=== PATIENT | female | born 1930 | race Caucasian/White ===

== ENCOUNTER 2017-01-18 07:32 | Outpatient (CLI) | payer MEDICARE, OTHER ==
[2017-01-18 19:13] LABS: ALBUMIN/GLOBULIN RATIO 1.5 (1.0-2.2); BILIRUBIN,TOTAL 0.5 mg/dL (0.2-1.0); BUN - BLOOD UREA NITROGEN 21 mg/dL (6-20); CALCIUM 9.7 mg/dL (8.5-10.3); CARBON DIOXIDE - CO2 27 mmol/L (21-32); CHLORIDE 106 mmol/L (101-111); CREATININE 0.9 mg/dL (0.4-1.0); GFR - MDRD 60 (>89); GLUCOSE 106 mg/dL (70-100); POTASSIUM 4.2 mmol/L (3.5-5.0); SODIUM 140 mmol/L (135-145); TOTAL PROTEIN 6.6 g/dL (6.7-8.2)
[2017-01-18 19:40] LABS: BASOPHILS % (AUTO) 0.6 %; EOSINOPHILS # (AUTO) 0.1 10^3/uL (0.0-0.7); EOSINOPHILS % (AUTO) 1.7 %; HCT - HEMATOCRIT 39.7 % (37.0-47.0); LYMPHOCYTES # (AUTO) 0.9 10^3/uL (1.5-3.5); MEAN CORPUSCULAR HEMOGLOBIN 30.5 pg (27.0-31.0); MEAN CORPUSCULAR HGB CONC 32.7 g/dL (32.0-36.0); MEAN CORPUSCULAR VOLUME 93.2 fL (81.0-99.0); MONOCYTES # (AUTO) 0.6 10^3/uL (0.0-1.0); MONOCYTES % (AUTO) 14.3 %; NEUTROPHILS # (AUTO) 2.5 10^3/uL (1.5-6.6); NEUTROPHILS % (AUTO) 62.4 %; NUCLEATED RED BLOOD CELLS AUTO 0.1 /100WBC; RED BLOOD COUNT 4.26 10^6/uL (4.20-5.40); RED CELL DISTRIBUTION WIDTH 14.3 % (12.0-15.0); UNCORRECTED WHITE BLOOD COUNT 4.1 x10^3/uL; WHITE BLOOD COUNT 4.1 x10^3/uL (4.8-10.8)
[2017-01-18 19:43] LABS: THYROID STIMULATING HORMONE 6.77 uIU/mL (0.34-5.60)
== END 2017-01-18 07:33 | disposition home or self-care (01) ==
LOC: LAB.WCP 07:32
PROVIDERS: ATTEND Family Medicine
DX: E03.9 Hypothyroidism, unspecified (principal); F03.91 Unspecified dementia, unspecified severity, with behavioral disturbance
CPT/HCPCS: 36415; 80053; 84439; 84443; 85025

== ENCOUNTER 2017-07-24 00:07 | Outpatient (CLI) | payer MEDICARE, OTHER | END 2017-07-24 00:08 | disposition critical access hospital (66) | LOC: EMS 00:07 | PROVIDERS: ATTEND Surgery | DX: R06.00 Dyspnea, unspecified (principal) | CPT/HCPCS: A0425; A0427 ==

== ENCOUNTER 2017-07-24 00:22 | Emergency (ER) | payer MEDICARE, OTHER ==
[2017-07-24] MEDS ORDERED: LORazepam 2 MG/ML SYRINGE IVP STA ×2 (00:34→01:26)
[2017-07-24] MEDS ORDERED: LORazepam 2 MG/ML SYRINGE ONE ×3 (00:37→01:33)
[2017-07-24] MEDS ORDERED: HYDROmorphone 1 MG/ML SYRINGE IVP STA (00:44)
[2017-07-24] MEDS ORDERED: ONDANSETRON 4 MG/2 ML VIAL IVP STA (00:44)
[2017-07-24 00:50] VITALS: BP 118/83
[2017-07-24 00:53] LABS: BASOPHILS % (AUTO) 0.2 %; HGB - HEMOGLOBIN 14.2 g/dL (12.0-16.0); LYMPHOCYTES % (AUTO) 7.2 %; MEAN CORPUSCULAR HEMOGLOBIN 30.2 pg (27.0-31.0); MEAN CORPUSCULAR VOLUME 91.6 fL (81.0-99.0); MEAN PLATELET VOLUME 8.2 fL (7.9-10.8); MONOCYTES % (AUTO) 7.1 %; NEUTROPHILS % (AUTO) 85.5 %; RED BLOOD COUNT 4.69 10^6/uL (4.20-5.40); RED CELL DISTRIBUTION WIDTH 14.9 % (12.0-15.0); UNCORRECTED WHITE BLOOD COUNT 25.5 x10^3/uL; WHITE BLOOD COUNT 25.5 x10^3/uL (4.8-10.8)
[2017-07-24] MEDS ORDERED: ONDANSETRON 4 MG/2 ML VIAL ONE (00:53)
[2017-07-24] MEDS ORDERED: HYDROmorphone 1 MG/ML SYRINGE ONE (00:53)
[2017-07-24 00:59] LABS: ALBUMIN/GLOBULIN RATIO 0.8 (1.0-2.2); BILIRUBIN,TOTAL 0.7 mg/dL (0.2-1.0); CALCIUM 10.7 mg/dL (8.5-10.3); CREATININE 1.6 mg/dL (0.4-1.0); POTASSIUM 3.8 mmol/L (3.5-5.0); TOTAL PROTEIN 8.2 g/dL (6.7-8.2)
--- NOTE | 2017-07-24 01:11 | XRAY Preliminary Report ---
Exam: XR CHEST 1 VIEW IMPRESSION: 1. No focal consolidation seen. 2. Bronchial wall thickening, possibly due to bronchitis or reactive airways disease. [facility] SITE ID: [id number]
--- NOTE | 2017-07-24 01:14 | XRAY Report ---
EXAM: CHEST RADIOGRAPHY EXAM DATE: 07/24/2017 12:58 AM. CLINICAL HISTORY: Dyspnea. COMPARISON: 09/22/2013. TECHNIQUE: 1 view. FINDINGS: Lungs/Pleura: No alveolar consolidation or pleural effusion seen. No pneumothorax. Bronchial wall thi ckening. Mediastinum: Rotated. Heart size is probably normal. Tortuous atherosclerotic aorta. Other: Old ununited left clavicle fracture. IMPRESSION: 1. No focal consolidation seen. 2. Bronchial wall thickening, possibly due to bronchitis or reactive airways disease. [facility] Referring Provider Line: [phone] SITE ID: [id number]
[2017-07-24 01:21] LABS: BAND NEUTROPHILS % (MANUAL) 2 %; LYMPHOCYTES % (MANUAL) 13 %; NEUTROPHILS % (MANUAL) 78 %; TOTAL CELLS COUNTED 100
[2017-07-24 01:22] LABS: NP AUTO DIFFERENTIAL? YES; NP MAN DIFFERENTIAL? NO; PLATELET ESTIMATE, MANUAL INCREASED (>450,000) (NORMAL); PLATELET MORPHOLOGY NORMAL APPEARANCE (NORMAL)
--- NOTE | 2017-07-24 02:48 | ED Physician Documentation ---
PD HPI DYSPNEA - Stated complaint Stated Complaint: SOB/WHEEZING - Chief complaint Chief Complaint: Resp - History obtained from History obtained from: Family, EMS - History of Present Illness Timing - onset: How many days ago (4) Timing - onset during: Rest Timing - duration: Days (4) Timing - details: Gradual onset, Still present Inciting event(s): Other (decreased oral intake) Improved by: O2, Inhaler/neb Associated symptoms: Cough, Wheezing Similar symptoms before: Has not had sx before Recently seen: Not recently seen - Additional information Additional information: 87-year-old female with advanced dementia has developed progressive dyspnea over the past 4 days. She has been less than her usual self according to her and she has stopped eating and drinking about 3 days ago. She does have a pulsed form indicating comfort measures only and with the at the bedside he confirms this. Review of Systems Unable to obtain: Unresponsive PD PAST MEDICAL HISTORY - Past Medical History Cardiovascular: High cholesterol Respiratory: Pneumonia Neuro: Alzhiemer's Endocrine/Autoimmune: HyPOthyroidism GI: Ulcers : Kidney stones HEENT: Other Psych: None Musculoskeletal: Fibromyalgia Derm: None - Past Surgical History Past Surgical History: Yes Ortho: Other HEENT: Cataracts, Tonsil/Adenoidectomy - Present Medications Home Medications: Ambulatory Orders Medication Instructions Recorded Confirmed Gabapentin 2 tab PO DAILY 10/01/15 07/24/17 raNITIdine [Zantac] 07/24/17 - Allergies Allergies/Adverse Reactions: Allergies Allergy/AdvReac Type Severity Reaction Status Date / Time epinephrine Allergy Intermediate Anxiety Verified 10/01/15 00:57 naproxen sodium * Allergy Intermediate Respiratory Verified 10/01/15 00:57 [From Aleve] codeine Allergy Mild Nausea Verified 10/01/15 00:57 Sulfa (Sulfonamide Allergy Mild Itching Verified 10/01/15 00:57 Antibiotics) ciprofloxacin [From Cipro] Allergy Unknown Verified 01/15/16 20:50 ciprofloxacin HCl * Allergy Unknown Verified 01/15/16 20:50 [From Cipro] ibuprofen [From Advil] Allergy Unknown Verified 01/15/16 20:50 iv contrast Allergy Intermediate Nausea Uncoded 10/01/15 00:57 - Social History Does the pt smoke?: No Smoking Status: Never smoker Does the pt drink ETOH?: Yes Does the pt have substance abuse?: No - Immunizations Immunizations are current?: Yes PD ED PE NORMAL - Vitals Vital signs reviewed: Yes (Tachycardic tachypneic and hypertensive) - General General: Other (Thin elderly female gasping for breath with the right eye open the left closed and no effort to make communication to voice.She does appear to be stiff on her whole body and attempts to raise her back up to listen to her lungs are met with and arching resistance.) - HEENT HEENT: Atraumatic, PERRL, EOMI, Other (Parched mucous membranes) - Neck Neck: Supple, no meningeal sign - Cardiac Cardiac: Other (Tachycardic rate and rhythm) - Respiratory Respiratory: Other (The patient has loud audible upper is respiratory sounds throughout both lung leonard and diminished breath sounds.) - Abdomen Abdomen: Soft, Non tender - Derm Derm: Normal color, Warm and dry, No rash - Extremities Extremities: No deformity, No edema - Neuro Neuro: Other (The patient is nonresponsive to voice or painful stimuli she does appear stiff consistent with prolonged seizure and she does appear agitated and uncomfortable.) Eye Opening: Spontaneous Motor: Abnormal Extension Verbal: None GCS Score: 7 Results - Vitals Vitals: Vital Signs - 24 hr 07/24/17 07/24/17 00:23 00:46 Heart Rate 127 H 122 H Respiratory 40 H 29 H Rate Blood Pressure 137/107 H 118/83 H O2 Saturation 93 99 Oxygen O2 Source [] Room air O2 Source [] Room air O2 Source Non-rebreather mask - EKG (time done) 0028 Rate: Rate (enter#) (127) Rhythm: Sinus tachycardia, JAZMIN Kent: LAD Intervals: Prolonged QT Compare to prior EKG: Changed from prior EKG (Since the prior tracing of 2004 the rate is increased, the QT interval has increased, right atrial enlargement and left axis deviation appeared.) - Labs Labs: Laboratory Tests 07/24/17 07/24/17 07/24/17 00:36 00:36 00:36 WBC 25.5 H RBC 4.69 Hgb 14.2 Hct 43.0 MCV 91.6 MCH 30.2 MCHC 33.0 RDW 14.9 Plt Count 405 MPV 8.2 Neut # Not Reportable Lymph # Not Reportable Rock # Not Reportable Eos # Not Reportable Baso # Not Reportable Absolute Nucleated RBC Not Reportable Total Counted 100 Band Neuts % (Manual) 2 Reactive Lymphs % (Man) 1 Abnorm Lymph % (Manual) 0 Nucleated RBC % Not Reportable Neutrophils # (Manual) 20.4 H Lymphocytes # (Manual) 3.6 H Monocytes # (Manual) 1.5 H Eosinophils # (Manual) 0.0 Basophils # (Manual) 0.0 Differential Comment MANUAL DIFFERENTIAL Platelet Estimate INCREASED (>450,000) Platelet Morphology NORMAL APPEARANCE RBC Morph Micro Appear NORMAL APPEARANCE Sodium 158 H* Potassium 3.8 Chloride 123 H* Carbon Dioxide 20 L Anion Gap 15.0 H BUN 50 H Creatinine 1.6 H Estimated GFR (MDRD) 31 L Glucose 163 H Lactic Acid Calcium 10.7 H Total Bilirubin 0.7 AST 29 ALT 41 Alkaline Phosphatase 131 H Troponin I < 0.04 Total Protein 8.2 Albumin 3.7 Globulin 4.5 H Albumin/Globulin Ratio 0.8 L Lipase 12 L 07/24/17 00:47 WBC RBC Hgb Hct MCV MCH MCHC RDW Plt Count MPV Neut # Lymph # Rock # Eos # Baso # Absolute Nucleated RBC Total Counted Band Neuts % (Manual) Reactive Lymphs % (Man) Abnorm Lymph % (Manual) Nucleated RBC % Neutrophils # (Manual) Lymphocytes # (Manual) Monocytes # (Manual) Eosinophils # (Manual) Basophils # (Manual) Differential Comment Platelet Estimate Platelet Morphology RBC Morph Micro Appear Sodium Potassium Chloride Carbon Dioxide Anion Gap BUN Creatinine Estimated GFR (MDRD) Glucose Lactic Acid 2.2 Calcium Total Bilirubin AST ALT Alkaline Phosphatase Troponin I Total Protein Albumin Globulin Albumin/Globulin Ratio Lipase - Rads (name of study) 1 view chest Radiology: Prelim report reviewed (Impression: 1. No focal consolidation seen. 2. Bronchial wall thickening, possibly due to bronchitis or reactive airways disease.), EMP read indepedently, See rad report PD MEDICAL DECISION MAKING - ED course Complexity details: reviewed old records, reviewed results, re-evaluated patient , considered differential, d/w family ED course: 87-year-old female with advanced dementia has stopped eating and drinking appears profoundly dehydrated and appears to have respiratory distress. She appears quite uncomfortable and paperwork accompanies her indicating comfort measures only. She is administered Ativan 2 mg intravenously and eventually she is administered 0.5 mg of Dilaudid and 4 mg of Zofran. She is given a second dose of Ativan 2 mg intravenously as well. During this period of time the patient's level of comfort appears to be much improved and we here in the emergency department wrestled with doing nothing. We did confirm the patient's wishes through evaluation of her living will and her POLST form and with confirmation from her Stephon Soto, who was able to come to the bedside and be with his while she passed. The patient appeared comfortable music was played to soothe the patient and her and she peacefully at 2:48 AM. Departure - Departure Disposition: 20 Clinical Impression: Dehydration
== END 2017-07-24 04:49 | disposition expired ==
LOC: EDUNIT# → ED 00:22 → SUPCPDRO 00:22 → ED 04:49
DX: E86.0 Dehydration (principal); G30.9 Alzheimer's disease, unspecified; F02.80 Dementia in other diseases classified elsewhere, unspecified severity, without behavioral disturbance, psychotic disturbance, mood disturbance, and anxiety; E03.9 Hypothyroidism, unspecified; E78.00 Pure hypercholesterolemia, unspecified; R00.0 Tachycardia, unspecified
CPT/HCPCS: 36415; 71010; 80053; 83605; 83690; 84484; 85025; 96374; 96375; 96376; 99284; 99285; J1170; J2060